=== PATIENT | male | born 1950 | race Caucasian/White ===

== ENCOUNTER 2016-04-01 13:03 | Outpatient (CLI) | payer MEDICARE, OTHER | END 2016-04-01 13:04 | disposition home or self-care (01) | DX: M79.676 Pain in unspecified toe(s) (principal) ==

== ENCOUNTER 2016-04-16 | Outpatient (CLI) | payer MEDICARE, OTHER | END 2016-04-16 11:23 | disposition home or self-care (01) | DX: I25.10 Atherosclerotic heart disease of native coronary artery without angina pectoris (principal) ==

== ENCOUNTER 2016-12-25 11:41 | Outpatient (CLI) | payer MEDICARE, OTHER ==
--- NOTE | 2016-12-25 15:24 | XRAY Report ---
THREE VIEW RIGHT FOOT: 12/25/2016 CLINICAL INDICATION: Pain. FINDINGS: AP, lateral, and oblique views of the right foot demonstrate mild degenerative changes of the interphalangeal joints. There is no evidence of acute fracture or dislocation. No radiopaque fore ign body is seen in the soft tissues. IMPRESSION: MILD OSTEOARTHRITIS. JOB #: [id number] EXT JOB #:[id number]
== END 2016-12-25 11:42 | disposition home or self-care (01) ==
LOC: DI 11:41
PROVIDERS: ATTEND Podiatrist
DX: M19.071 Primary osteoarthritis, right ankle and foot (principal)

== ENCOUNTER 2020-09-16 15:09 | Outpatient (CLI) | payer MEDICARE, OTHER ==
[2020-09-16 15:29] LABS: BASOPHILS # (AUTO) 0.1 10^3/uL (0.0-0.1); BASOPHILS % (AUTO) 1.1 %; EOSINOPHILS # (AUTO) 0.1 10^3/uL (0.0-0.7); EOSINOPHILS % (AUTO) 1.4 %; HCT - HEMATOCRIT 44.4 % (42.0-52.0); HGB - HEMOGLOBIN 14.8 g/dL (14.0-18.0); LYMPHOCYTES # (AUTO) 1.7 10^3/uL (1.5-3.5); LYMPHOCYTES % (AUTO) 18.8 %; MEAN CORPUSCULAR HEMOGLOBIN 33.5 pg (27.0-31.0); MEAN CORPUSCULAR HGB CONC 33.3 g/dL (32.0-36.0); MEAN CORPUSCULAR VOLUME 100.5 fL (80.0-94.0); MEAN PLATELET VOLUME 8.8 fL (7.4-11.4); MONOCYTES # (AUTO) 0.8 10^3/uL (0.0-1.0); MONOCYTES % (AUTO) 8.7 %; NEUTROPHILS # (AUTO) 6.3 10^3/uL (1.5-6.6); NEUTROPHILS % (AUTO) 69.5 %; PLT - PLATELET COUNT 234 10^3/uL (130-450); RED BLOOD COUNT 4.42 10^6/uL (4.70-6.10); RED CELL DISTRIBUTION WIDTH 12.6 % (12.0-15.0); WHITE BLOOD COUNT 9.1 x10^3/uL (4.8-10.8)
[2020-09-16 15:37] LABS: CALCIUM 9.5 mg/dL (8.5-10.3); POTASSIUM 4.2 mmol/L (3.5-5.0)
== END 2020-09-16 15:10 | disposition home or self-care (01) ==
LOC: LAB 15:09
PROVIDERS: ATTEND Nurse Practitioner Family
DX: Z12.5 Encounter for screening for malignant neoplasm of prostate (principal); R06.02 Shortness of breath; I25.5 Ischemic cardiomyopathy; E78.5 Hyperlipidemia, unspecified; I25.10 Atherosclerotic heart disease of native coronary artery without angina pectoris; F41.9 Anxiety disorder, unspecified
CPT/HCPCS: 36415; 80048; 84443; 85025; G0103; 84153